=== PATIENT | male | born 1985 | race Caucasian/White ===

== ENCOUNTER 2021-02-26 08:19 | Day surgery (SDC) | payer OTHER ==
[~2021-02-26 08:19] MED LIST: Midazolam 1 MG/ML 2 ML SDV ONE; Propofol 200 MG/20 ML SDV ONE; fentaNYL 100 MCG/2 ML SDV ONE
[2021-02-26] MEDS ORDERED: Sodium Chloride 0.9% 1,000 ML IV SCH (09:00)
--- NOTE | 2021-02-27 08:23 | OR ---
DATE OF PROCEDURE: 02/26/2021 SURGEON: Luke Astorga MD PROCEDURE: Colonoscopy. FINDINGS: Transverse colon polyp, approximately 5 mm, completely removed using cold biopsy forceps. COMPLICATION: None. [employer] ATTENDANT: None. ANESTHESIA: MAC. PREOPERATIVE DIAGNOSIS: Family history of colorectal cancer. POSTOPERATIVE DIAGNOSIS: Family history of colorectal cancer. RISKS: Risks, benefits, alternatives, and limitations including, but not limited to infection, bleeding, perforation, false positives, false negatives were explained to the patient and he wished to proceed. PROCEDURE IN DETAIL: The patient was placed in left lateral decubitus position. Digital rectal exam was performed without abnormality. Scope was introduced and advanced atraumatically to the ileocecal valve. A photo was taken of the appendiceal orifice. Scope was brought back to the ascending, transverse, descending colon, and retroflexed. The aforementioned polyp was identified and completely removed. No colitis. No diverticulosis. Greater than 8 minutes was spent removing the scope. Prep was acceptable, approximately 90% of the luminal surface could be seen. No abnormalities on retroflexion. The patient tolerated the procedure well. Recommend repeat colonoscopy in 5 years due to family history. Luke Astorga MD /[id number]
== END 2021-02-26 11:26 | disposition home or self-care (01) ==
LOC: JP.SDS 08:19
PROVIDERS: ATTEND Surgery
DX: Z12.11 Encounter for screening for malignant neoplasm of colon (principal); D12.3 Benign neoplasm of transverse colon; Z80.0 Family history of malignant neoplasm of digestive organs
CPT/HCPCS: 45380; J2250; J2704; J3010; J7030

== ENCOUNTER 2024-03-06 07:50 | Day surgery (SDC) | payer OTHER ==
[2024-03-06] MEDS ORDERED: Propofol 200 MG/20 ML SDV ONE (07:55)
[2024-03-06] MEDS ORDERED: fentaNYL 50 MCG/ML SDV ONE (07:55)
[2024-03-06] MEDS ORDERED: Midazolam 1 MG/ML 2 ML SDV ONE (07:55)
[2024-03-06] MEDS: Sodium Chloride 0.9% 1,000 ML IV SCH (08:20)
== END 2024-03-06 11:05 | disposition home or self-care (01) ==
LOC: JP.SDS 07:50
PROVIDERS: ATTEND Surgery
DX: Z12.11 Encounter for screening for malignant neoplasm of colon (principal); Z86.0100 Personal history of colon polyps, unspecified
CPT/HCPCS: 45378; J2250; J2704; J3010; J7030; 00812-QZ